=== PATIENT | female | born 1980 | race Caucasian/White ===

== ENCOUNTER → 2019-08-21 | Outpatient (CLI) | payer OTHER ==
[2019-08-22 02:40] LABS: RUBEOLA (MEASLES) IGG 84.8 AU/mL (Immune >16.4)
== END | disposition home or self-care (01) ==
LOC: EMPHLTH 10:09
PROVIDERS: ATTEND Internal Medicine
DX: Z02.1 Encounter for pre-employment examination (principal)
CPT/HCPCS: 86706; 86735; 86762; 86765; 86787

== ENCOUNTER 2020-03-05 19:53 | Emergency (ER) | payer OTHER ==
[~2020-03-05] VITALS: Ht 162.6 cm; Wt 72.7 kg
[2020-03-05] MEDS ORDERED: LISI-661 PO (20:10)
[2020-03-05] MEDS ORDERED: ACETAMINOPHEN 500 MG TABLET PO ONE (21:00)
[2020-03-05 22:17] LABS: RAPID GROUP A STREP NEGATIVE (NEGATIVE)
[2020-03-05 22:53] VITALS: BP 157/95
== END 2020-03-05 23:13 | disposition home or self-care (01) ==
LOC: EMS 19:53
DX: R50.9 Fever, unspecified (principal); Z20.828 Contact with and (suspected) exposure to other viral communicable diseases
CPT/HCPCS: 87426; 87430; 99283; U0003

== ENCOUNTER 2020-05-02 13:51 | Emergency (ER) | payer OTHER ==
[~2020-05-02] VITALS: Ht 162.6 cm; Wt 73.2 kg
[~2020-05-02 13:51] MED LIST: LISI-661 PO
[2020-05-02] MEDS ORDERED: IBUP-1506 PO (13:56)
[2020-05-02] MEDS ORDERED: ACET-2865 PO (13:56)
[2020-05-02 13:57] VITALS: BP 150/92
== END 2020-05-02 15:08 | disposition left against medical advice (07) ==
LOC: EMS 13:52
DX: R10.9 Unspecified abdominal pain (principal); Z53.21 Procedure and treatment not carried out due to patient leaving prior to being seen by health care provider

== ENCOUNTER 2020-08-04 10:36 | Emergency (ER) | payer OTHER ==
[~2020-08-04] VITALS: Ht 162.6 cm; Wt 75.0 kg
[~2020-08-04 10:36] MED LIST changes: +ACET-2865 PO; +IBUP-1506 PO; -LISI-661 PO; +LISI-893 PO
[2020-08-04 10:43] VITALS: BP 168/107
[2020-08-04 12:52] LABS: COVID AG,FIA SOURCE NASAL SWAB
== END 2020-08-04 12:14 | disposition home or self-care (01) ==
LOC: EMS 10:36
DX: B02.9 Zoster without complications (principal); Z20.822 Contact with and (suspected) exposure to COVID-19
CPT/HCPCS: 87426; 99283; C9803; U0003